=== PATIENT | female | born 1960 | race American Indian/Alaskan Native ===

== ENCOUNTER 2018-04-18 10:25 | Emergency (ER) | payer MEDICAID ==
[2018-04-18 10:54] LABS: Basophils % (Auto) 0.9 % (0.0-1.8); Eosinophils # (Auto) 0.1 K/mm3 (0.0-0.4); Eosinophils % (Auto) 1.3 % (0.0-4.3); Hematocrit 35.3 % (30.3-42.9); Hemoglobin 11.9 gm/dl (10.1-14.3); Lymphocytes # (Auto) 1.9 K/mm3 (1.2-5.4); Lymphocytes % (Auto) 38.1 % (13.4-35.0); Mean Corpuscular HGB Conc 34 % (30-34); Mean Corpuscular Volume 94 fl (79-97); Monocytes # (Auto) 0.5 K/mm3 (0.0-0.8); Monocytes % (Auto) 9.7 % (0.0-7.3); Platelet Count 372 K/mm3 (140-440); Red Blood Count 3.75 M/mm3 (3.65-5.03); Red Cell Distribution Width 12.6 % (13.2-15.2)
[2018-04-18 11:19] LABS: BUN/Creatinine Ratio 13; Blood Urea Nitrogen 10 mg/dL (7-17); Calcium 9.3 mg/dL (8.4-10.2); Hemolysis Index 7
--- NOTE | 2018-04-18 11:40 | Emergency Department Report ---
ED Alcohol HPI - General Chief Complaint: Alcohol Stated Complaint: DETOX Time Seen by Provider: 04/18/18 11:35 Source: patient Mode of arrival: Ambulatory Limitations: No Limitations - History of Present Illness Initial Comments: Patient is 58-year-old female with no significant past medical history except for alcohol and drug dependence. Patient presented to the ER stating that questioning detoxification from alcohol and crack cocaine. Patient stated that she's been drinking daily and using crack cocaine daily. Last drink this morning and last use of cocaine this morning also. Patient stated that she was admitted for detox last year and she was continued for 4 month. Patient stated that she is having thoughts of killing herself by overdosing if she did not get help for her alcohol and drug problem. Patient denied any homicidal ideation. No auditory or visual hallucination. Patient denied any confusion, chest pain, shortness of breath, abdominal pain, nausea or vomiting. MD Complaint: alcohol dependence, desires rehab, medical clearance for det Chronic Alcohol Use: Yes Previous Visits for Alcohol Intoxication?: Yes Recent Trauma: No Associated Symptoms: denies other symptoms Treatments Prior to Arrival: none - Related Data Previous Rx's Medication Instructions Recorded Last Taken Type Folic Acid [Folvite] 1 mg PO QDAY #30 tablet 01/08/18 Unknown Rx Nicotine [Habitrol] 21 mg TD QDAY #7 patch 01/08/18 Unknown Rx Thiamine [Vitamin B-1] 100 mg PO QDAY #30 tablet 01/08/18 Unknown Rx Allergies Allergy/AdvReac Type Severity Reaction Status Date / Time No Known Allergies Allergy Verified 01/04/18 16:37 ED Review of Systems ROS: Stated complaint: DETOX Other details as noted in HPI Comment: All other systems reviewed and negative Constitutional: denies: chills, fever Respiratory: denies: cough, orthopnea, shortness of breath, SOB with exertion, SOB at rest, wheezing Cardiovascular: denies: chest pain, palpitations Gastrointestinal: denies: abdominal pain, nausea, vomiting, diarrhea, constipation, hematemesis, melena, hematochezia Musculoskeletal: denies: back pain Neurological: denies: headache, weakness, numbness, paresthesias, confusion, abnormal gait ED Past Medical Hx - Past Medical History Previous Medical History?: Yes Hx Psychiatric Treatment: Yes (bipolar) Hx Asthma: Yes - Surgical History Past Surgical History?: Yes Additional Surgical History: d&c - Social History Smoking Status: Current Every Day Smoker Substance Use Type: Alcohol, Cocaine - Medications Home Medications: Home Medications Medication Instructions Recorded Confirmed Last Taken Type Folic Acid [Folvite] 1 mg PO QDAY #30 tablet 01/08/18 Unknown Rx Nicotine [Habitrol] 21 mg TD QDAY #7 patch 01/08/18 Unknown Rx Thiamine [Vitamin B-1] 100 mg PO QDAY #30 tablet 01/08/18 Unknown Rx ED Physical Exam - General Limitations: No Limitations General appearance: alert, in no apparent distress - Head Head exam: Present: atraumatic, normocephalic, normal inspection - Eye Eye exam: Present: normal appearance, PERRL - ENT ENT exam: Present: normal exam, normal orophraynx, mucous membranes moist - Neck Neck exam: Present: normal inspection, full ROM. Absent: tenderness, meningismus, lymphadenopathy, thyromegaly - Respiratory Respiratory exam: Present: normal lung sounds bilaterally. Absent: respiratory distress, wheezes, rales, rhonchi, stridor, chest wall tenderness, accessory muscle use, decreased breath sounds, prolonged expiratory - Cardiovascular Cardiovascular Exam: Present: regular rate, normal rhythm, normal heart sounds - GI/Abdominal GI/Abdominal exam: Present: soft, normal bowel sounds. Absent: distended, tenderness, guarding, rebound, rigid, organomegaly, mass, bruit, pulsatile mass, hernia - Extremities Exam Extremities exam: Present: normal inspection, full ROM, normal capillary refill. Absent: tenderness, pedal edema, joint swelling, calf tenderness - Back Exam Back exam: Present: normal inspection, full ROM. Absent: tenderness, CVA tenderness (R), CVA tenderness (L), muscle spasm, paraspinal tenderness, vertebral tenderness - Neurological Exam Neurological exam: Present: alert, oriented X3, CN II-XII intact, normal gait, reflexes normal - Psychiatric Psychiatric exam: Present: normal mood. Absent: agitated, anxious, flat affect, manic, homicidal ideation, suicidal ideation - Skin Skin exam: Present: warm, intact, normal color ED Course Vital Signs 04/18/18 04/18/18 10:34 12:52 Temperature 98.2 F 98.9 F Pulse Rate 84 77 Respiratory 16 16 Rate Blood Pressure 104/67 Blood Pressure 111/70 [Left] O2 Sat by Pulse 98 99 Oximetry ED Medical Decision Making - Lab Data Result diagrams: 04/18/18 10:42 04/18/18 10:42 - Medical Decision Making Patient is medically clear. Patient evaluated by me with vision and will be admitted to [facility] for detox. Critical care attestation.: If time is entered above; I have spent that time in minutes in the direct care of this critically ill patient, excluding procedure time. ED Disposition Clinical Impression: Alcohol dependence, Drug abuse Disposition: DC-01 TO HOME OR SELFCARE Is pt being admited?: No Condition: Stable
[2018-04-18 12:53] VITALS: BP 111/70
== END 2018-04-18 14:30 | disposition home or self-care (01) ==
LOC: ED 10:25
DX: F10.20 Alcohol dependence, uncomplicated (principal); F31.9 Bipolar disorder, unspecified; J45.909 Unspecified asthma, uncomplicated; F17.200 Nicotine dependence, unspecified, uncomplicated
CPT/HCPCS: 36415; 80048; 85025; 99283; G0480; 80320

== ENCOUNTER 2018-04-18 13:14 | Inpatient (IN) | payer MEDICAID ==
[2018-04-18] MEDS ORDERED: REQUIP PO PRN (13:52)
[2018-04-18] MEDS ORDERED: IMODIUM PO PRN (13:52)
[2018-04-18] MEDS ORDERED: ROBAXIN PO PRN (13:52)
[2018-04-18] MEDS ORDERED: ALUM-MAG HYDROX-SIMETH 200-200-20MG/5ML PO PRN (13:52)
[2018-04-18] MEDS ORDERED: TYLENOL PO PRN (13:52)
[2018-04-18] MEDS ORDERED: ZOFRAN IV PRN (13:52)
--- NOTE | 2018-04-18 13:52 | History and Physical Report ---
History of Present Illness Chief complaint: I just cant stop, I need some real help History of present illness: 58 YO Female with Nicotine Dependence, ETOH Dependence, Cocaine Dependence presents for evaluation. Pt states that she last consumed Alcohol and cocaine prior to evaluation. Pt states that she has experienced anxiety, abdominal cramping and discomfort, nausea, tremors, headaches, irritability, insomnia, sweating, loss of appetite, poor concentration, restlessness, nasal congestion, watery eyes, depressed mood. Pt seen and evaluated upon arrival, and found to have ETOH Withdrawl Syndrome, as well as Cocaine Withdrawl. Pt admitted to [facility] for medical stabilization. Past History Past Medical History: other (Polysubstance Abuse) Past Surgical History: No surgical history, Other (reviewed) Social history: single, smoking, alcohol abuse Family history: no significant family history (reviewed) Medications and Allergies Allergies Allergy/AdvReac Type Severity Reaction Status Date / Time No Known Allergies Allergy Verified 01/04/18 16:37 Home Medications Medication Instructions Recorded Confirmed Last Taken Type Folic Acid [Folvite] 1 mg PO QDAY #30 tablet 01/08/18 Unknown Rx Nicotine [Habitrol] 21 mg TD QDAY #7 patch 01/08/18 Unknown Rx Thiamine [Vitamin B-1] 100 mg PO QDAY #30 tablet 01/08/18 Unknown Rx Review of Systems Constitutional: no weight loss, no weight gain, no fever, no chills Ears, nose, mouth and throat: no ear pain, no ear discharge, no tinnitis, no decreased hearing, no nose pain Breasts: no change in shape, no swelling, no mass Cardiovascular: no chest pain, no orthopnea, no palpitations, no rapid/irregular heart beat Respiratory: no cough, no cough with sputum, no excessive sputum, no shortness of breath Gastrointestinal: nausea, vomiting, no diarrhea, no constipation, no change in bowel habits, no hematemesis Genitourinary Female: no dysmenorrhea, no pelvic pain, no flank pain, no menorrhagia, no dysuria, no urinary frequency, no urgency Rectal: no pain, no incontinence, no bleeding Musculoskeletal: no neck stiffness, no shooting arm pain, no arm numbness/tingling, no leg numbness/tingling, no redness of joints Integumentary: no rash, no pruritis, no redness, no sores, no wounds Neurological: no transient paralysis, no paralysis, no weakness, no parathesias, no tingling, no seizures, no syncope Psychiatric: anxiety, memory loss, change in sleep habits, insomnia, change in appetite, depression, difficulties concentrating, confusion, irritability, no suicidal ideation, no disorientation Endocrine: no cold intolerance, no heat intolerance, no polyphagia, no excessive thirst, no polydipsia, no polyuria Hematologic/Lymphatic: no easy bruising, no easy bleeding, no lymphadenopathy, no lymphedema Allergic/Immunologic: no urticaria, no allergic rhinitis, no wheezing, no persistent infections Exam - Constitutional General appearance: Present: mild distress, disheveled - EENT Eyes: Present: PERRL ENT: hearing intact, clear oral mucosa - Neck Neck: Present: supple, normal ROM - Respiratory Respiratory effort: normal Respiratory: bilateral: CTA - Cardiovascular Heart Sounds: Present: S1 & S2. Absent: rub, click - Extremities Extremities: pulses symmetrical, No edema Peripheral Pulses: within normal limits - Abdominal General gastrointestinal: Present: soft, non-tender, non-distended, normal bowel sounds Female genitourinary: Present: normal - Integumentary Integumentary: Present: clear, warm, dry - Musculoskeletal Musculoskeletal: gait normal, strength equal bilaterally - Psychiatric Psychiatric: appropriate mood/affect, intact judgment & insight - Neurologic Neurologic: CNII-XII intact, moves all extremities Assessment and Plan - Patient Problems (1) Alcohol withdrawal syndrome Current Visit: No Status: Acute Qualifiers: Complication of substance-induced condition: with perceptual disturbance Qualified Code(s): F10.232 - Alcohol dependence with withdrawal with perceptual disturbance Plan to address problem: ETOH Withdrawl Protocol: Librium taper, IVF resuscitation therapy, Ativan prn, supportive care, Banana bag, Thiamine, Rolic Acid, Multivitamin, (2) Cocaine dependence with withdrawal Current Visit: No Status: Acute Plan to address problem: IVF resuscitation therapy, pain control, (3) Drug abuse Current Visit: No Status: Acute Plan to address problem: Pt counseled (4) Nicotine dependence unspecified, with withdrawal Current Visit: No Status: Acute Qualifiers: Nicotine product type: cigarettes Qualified Code(s): F17.213 - Nicotine dependence, cigarettes, with withdrawal Plan to address problem: nicotine patch QD, remove QHS (5) DVT prophylaxis Current Visit: No Status: Acute Plan to address problem: SCD to BLE while in bed
[2018-04-18] MEDS ORDERED: ATIVAN PO SCH (14:00)
[2018-04-18] MEDS ORDERED: ATIVAN PO PRN (14:25)
[2018-04-18] MEDS ORDERED: VISTARIL PO PRN (15:00)
[2018-04-18] MEDS ORDERED: VITAMIN B-1 100 MG, FOLVITE 1 MG, INFUVITE 10 ML in NACL 0.9% 1000 ML 1,000 ML IV ONE (16:00)
[2018-04-18] MEDS: LIBRIUM PO SCH (17:24)
[2018-04-19] MEDS: LIBRIUM PO SCH ×3 (00:16→12:38)
[2018-04-19] MEDS: VITAMIN B-1 PO SCH (09:45)
[2018-04-19] MEDS: THERAGRAN Tab PO SCH (09:45)
[2018-04-19] MEDS: HABITROL TD SCH (09:45)
[2018-04-19] MEDS: FOLVITE PO SCH (09:45)
--- NOTE | 2018-04-19 15:22 | Progress Note ---
Assessment and Plan Assessment and plan: Alcohol dependence. Patient admitted to [facility] Medications as per protocol Cocaine dependence Medications per protocol Robaxin Requip Full code status. History Interval history: Needs help with Cocaine and Alcohol dependence Hospitalist Physical - Physical exam Narrative exam: GEN: Not in acute distress, lying in bed HEENT: Normocephalic, atraumatic, Neck: supple, No JVD Lungs: Clear to auscultation bilaterally, no wheeze Heart:S1 and S2 regular, no murmurs, rubs or gallop, Abd:soft, non tender, non distended, normal bowel sounds Ext: No edema, no clubbing or cyanosis Neuro: Awake,alert, oriented x 3, No focal signs Psych:Normal mood - Constitutional Vitals: Temp Pulse Resp BP Pulse Ox 98.0 F 72 20 111/68 100 04/19/18 12:42 04/19/18 12:42 04/19/18 12:42 04/19/18 12:42 04/19/18 12:42 Results - Labs CBC & Chem 7: 04/20/18 06:50 04/20/18 06:49 Nutrition/Malnutrition Assess - Dietary Evaluation Nutrition/Malnutrition Findings: Nutrition Notes Start: 04/19/18 14:04 Freq: Status: Active Protocol: Document 04/19/18 14:04 KIMO (Rec: 04/19/18 14:08 KIMO [email or web address] [email or web address]) Nutrition Notes 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 Pt does not have any bottom row teeth and requests soft foods. Reports good appetite; has consumed 100% of meals since admission. Burn Absent Trauma Absent #1 Nutrition Diagnosis Biting/Chewing (masticatory) difficulty Etiology partial edentulism As Evidenced by Signs and Symptoms pt requests softer foods Is patient on ventilator? No Is Patient Ambulatory and/or Out of Bed Yes REE-([place]-St. Jeor-ambulatory/OOB) [ 1552.044 NUTR.MSJOOB] Calculation Used for Recommendations [place]-St Jeor Additional Notes Pro needs 0.8-1g/k-60g/ day Fluid needs 1ml/kcal Nutrition Intervention Change Diet Order: Change diet to [facility] soft with chopped meats Goal #1 PO intakes to meet at least 75 % of energy and pro needs Anticipated Discharge Needs: None identified at this time Follow-Up By: 04/26/18 Additional Comments F/U: stable intakes, wt
[2018-04-20 06:58] LABS: Hematocrit 33.1 % (30.3-42.9); Hemoglobin 11.4 gm/dl (10.1-14.3); Mean Corpuscular HGB Conc 34 % (30-34); Mean Corpuscular Volume 94 fl (79-97); Platelet Count 297 K/mm3 (140-440); Red Blood Count 3.52 M/mm3 (3.65-5.03); Red Cell Distribution Width 12.6 % (13.2-15.2)
[2018-04-20 07:23] LABS: BUN/Creatinine Ratio 11; Blood Urea Nitrogen 8 mg/dL (7-17); Calcium 8.6 mg/dL (8.4-10.2); Hemolysis Index 3
[2018-04-20] MEDS: THERAGRAN Tab PO SCH (09:31)
[2018-04-20] MEDS: FOLVITE PO SCH (09:31)
[2018-04-20] MEDS: VITAMIN B-1 PO SCH (09:31)
[2018-04-20] MEDS: HABITROL TD SCH (09:32)
--- NOTE | 2018-04-20 14:27 | Progress Note ---
Assessment and Plan Assessment and plan: Alcohol dependence. Patient admitted to [facility] Medications as per protocol Cocaine dependence Medications per protocol ContRobaxin Cont Requip Full code status. Likely discharge tomorrow History Interval history: Needs help with Cocaine and Alcohol dependence, nausea abd pain Hospitalist Physical - Physical exam Narrative exam: GEN: Not in acute distress, lying in bed HEENT: Normocephalic, atraumatic, Neck: supple, No JVD Lungs: Clear to auscultation bilaterally, no wheeze Heart:S1 and S2 regular, no murmurs, rubs or gallop, Abd:soft, non tender, non distended, normal bowel sounds Ext: No edema, no clubbing or cyanosis Neuro: Awake,alert, oriented x 3, No focal signs Psych:Normal mood - Constitutional Vitals: Temp Pulse Resp BP Pulse Ox 99.2 F 70 18 124/70 98 04/20/18 12:16 04/20/18 12:16 04/20/18 12:16 04/20/18 12:16 04/20/18 12:16 General appearance: Present: disheveled Results - Labs CBC & Chem 7: 04/21/18 09:05 04/21/18 09:05 Labs: Laboratory Last Values WBC 3.2 K/mm3 (4.5-11.0) L 04/20/18 06:50 RBC 3.52 M/mm3 (3.65-5.03) L 04/20/18 06:50 Hgb 11.4 gm/dl (10.1-14.3) 04/20/18 06:50 Hct 33.1 % (30.3-42.9) 04/20/18 06:50 MCV 94 fl (79-97) 04/20/18 06:50 MCH 32 pg (28-32) 04/20/18 06:50 MCHC 34 % (30-34) 04/20/18 06:50 RDW 12.6 % (13.2-15.2) L 04/20/18 06:50 Plt Count 297 K/mm3 (140-440) 04/20/18 06:50 Sodium 146 mmol/L (137-145) H 04/20/18 06:49 Potassium 3.6 mmol/L (3.6-5.0) 04/20/18 06:49 Chloride 110.7 mmol/L (98-107) H 04/20/18 06:49 Carbon Dioxide 25 mmol/L (22-30) 04/20/18 06:49 Anion Gap 14 mmol/L 04/20/18 06:49 BUN 8 mg/dL (7-17) 04/20/18 06:49 Creatinine 0.7 mg/dL (0.7-1.2) 04/20/18 06:49 Estimated GFR > 60 ml/min 04/20/18 06:49 BUN/Creatinine Ratio 11 % 04/20/18 06:49 Glucose 91 mg/dL (65-100) 04/20/18 06:49 Calcium 8.6 mg/dL (8.4-10.2) 04/20/18 06:49 Nutrition/Malnutrition Assess - Dietary Evaluation Nutrition/Malnutrition Findings: Nutrition Notes Start: 04/19/18 14:04 Freq: Status: Active Protocol: Document 04/19/18 14:04 KIMO (Rec: 04/19/18 14:08 KIMO [email or web address] [email or web address]) Nutrition Notes Need for 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 Pt does not have any bottom row teeth and requests soft foods. Reports good appetite; has consumed 100% of meals since admission. Burn Absent Trauma Absent #1 Nutrition Diagnosis Biting/Chewing (masticatory) difficulty Etiology partial edentulism As Evidenced by Signs and Symptoms pt requests softer foods Is patient on ventilator? No Is Patient Ambulatory and/or Out of Bed Yes REE-([place]-St. Jeor-ambulatory/OOB) [ 1552.044 NUTR.MSJOOB] [facility] Additional Notes Pro needs 0.8-1g/k-60g/ day Fluid needs 1ml/kcal Nutrition Intervention Change [facility]: [facility] Goal #1 PO intakes to meet at least 75 % of energy and pro needs Anticipated Discharge Needs: None identified at this time Follow-Up By: 04/26/18 Additional Comments F/U: stable intakes, wt
[2018-04-21] MEDS ORDERED: ROBITUSSIN PO PRN (09:30)
[2018-04-21] MEDS: THERAGRAN Tab PO SCH (09:46)
[2018-04-21] MEDS: HABITROL TD SCH (09:46)
[2018-04-21] MEDS: FOLVITE PO SCH (09:46)
[2018-04-21] MEDS: VITAMIN B-1 PO SCH (09:46)
[2018-04-21 10:00] LABS: Hematocrit 38.2 % (30.3-42.9); Hemoglobin 12.6 gm/dl (10.1-14.3); Mean Corpuscular HGB Conc 33 % (30-34); Mean Corpuscular Volume 95 fl (79-97); Platelet Count 346 K/mm3 (140-440)
[2018-04-21 10:12] LABS: BUN/Creatinine Ratio 11; Blood Urea Nitrogen 10 mg/dL (7-17); Calcium 9.3 mg/dL (8.4-10.2); Hemolysis Index 9
[2018-04-21 12:39] VITALS: BP 120/70
--- NOTE | 2018-04-21 12:48 | Discharge Summary ---
Providers - Providers Date of Admission: 04/18/18 13:54 Date of discharge: 04/21/18 Attending physician: DERREK LYONS Primary care physician: LANDEN GEE MD Hospitalization Condition: Fair Hospital course: Patient is 58 YO Female with Nicotine Dependence, alcohol dependence, cocaine dependence presents for evaluation. Pt states that she last consumed Alcohol and cocaine prior to evaluation. Pt states that she has experienced anxiety, abdominal cramping and discomfort, nausea, tremors, headaches, irritability, insomnia, sweating, loss of appetite, poor concentration, restlessness, nasal congestion, watery eyes, depressed mood. Patient was seen and evaluated upon arrival, and found to have alcohol withdrawl Syndrome, as well as Cocaine Withdrawal. She was admitted to [facility] for medical stabilization. She was put on Robaxin, requip, Librium. She improved the next few days and was ultimately discharged on 04/21/2018. Total time spent on discharge, 31 minutes Disposition: DC- TO HOME OR SELFCARE - Discharge Diagnoses (1) Acute metabolic encephalopathy Status: Acute (2) Alcohol dependence Status: Acute (3) Cocaine dependence with withdrawal Status: Acute Core Measure Documentation - Palliative Care Palliative Care/ Comfort Measures: Not Applicable - Core Measures Any of the following diagnoses?: none Exam - Physical Exam Narrative exam: GEN: Not in acute distress, lying in bed HEENT: Normocephalic, atraumatic, Neck: supple, No JVD Lungs: Clear to auscultation bilaterally, no wheeze Heart:S1 and S2 regular, no murmurs, rubs or gallop, Abd:soft, non tender, non distended, normal bowel sounds Ext: No edema, no clubbing or cyanosis Neuro: Awake,alert, oriented x 3, No focal signs Psych:Normal mood - Constitutional Vitals: Temp Pulse Resp BP Pulse Ox 98.5 F 73 18 120/70 97 04/21/18 11:36 04/21/18 11:36 04/21/18 11:36 04/21/18 11:36 04/21/18 11:36 Plan Activity: no restrictions Diet: regular Additional Instructions: 1.Follow up with PCP in 1 week. Follow up with: PRIMARY CARE, [Primary Care Provider] - 7 Days Prescriptions: Folic Acid [Folvite] 1 mg PO QDAY #30 tablet Multivitamin Tab [Multiple Vitamin TAB (Theragran)] 1 each PO QDAY #30 tablet Thiamine [Vitamin B-1] 100 mg PO QDAY #30 tablet
== END 2018-04-21 13:11 | disposition home or self-care (01) | DRG 896 ==
LOC: 2B-ACE 13:14 → UNDOADMIN 13:14 → MSU 13:54
PROVIDERS: ADMIT Internal Medicine; ATTEND Internal Medicine
DX: F10.232 Alcohol dependence with withdrawal with perceptual disturbance (principal); G93.41 Metabolic encephalopathy; Y90.0 Blood alcohol level of less than 20 mg/100 ml; F14.23 Cocaine dependence with withdrawal; F17.213 Nicotine dependence, cigarettes, with withdrawal; Z71.51 Drug abuse counseling and surveillance of drug abuser
CPT/HCPCS: 36415; 80048; 80320; 85025; 85027; 87116; 99283; G0378; G0480; J3411; J7030